=== PATIENT | female | born 1940 | race Caucasian/White ===

== ENCOUNTER 2022-01-19 19:16 | Emergency (ER) | payer MEDICARE, MEDICAID, SELFPAY ==
[2022-01-19 19:25] VITALS: BP 175/111; PULSE 91; RESP 18; O2SAT 92; BMI 28.3
--- NOTE | 2022-01-19 19:48 | XRR_ITS ---
PROCEDURE INFORMATION: Exam: XR Abdomen Exam date and time: 01/19/2022 8:00 PM Age: 81 years old Clinical indication: Abdominal pain TECHNIQUE: Imaging protocol: Radiologic exam of the abdomen. Views: Frontal supine view of the abdomen. 1 View. COMPARISON: No relevant prior studies available. FINDINGS: Gastrointestinal tract: Constipation with large amount of stool in the rectal vault perhaps reflecting fecal impaction, negative for bowel dilation to indicate obstruction. Vasculature: Scattered atherosclerotic calcifications with a possible calcified aortic aneurysm, CT abdomen and pelvis could further evaluate this. Bones/joints: Unremarkable. XR/XR abdomen 1V* [id number] IMPRESSION: 1. Constipation with large amount of stool in the rectal vault perhaps reflecting fecal impaction, negative for bowel dilation to indicate obstruction. 2. Scattered atherosclerotic calcifications with a possible calcified aortic aneurysm, CT abdomen and pelvis could further evaluate this.
--- NOTE | 2022-01-19 19:50 | W.ED.ABDPA2 ---
HPI - Abdominal Pain General: Chief Complaint: Abdominal Pain Stated Complaint: ABD PAIN Time Seen by Provider: 01/19/22 19:37 Source: EMS and RN notes reviewed Limitations: other (Severe dementia unable to give any reliable history) History of Present Illness: See nursing system. Patient has no complaints. Patient reportedly does not have a bowel movement 24 hours and complained of abdominal pain earlier. Patient does not know the year or location. She appears pleasant. Paperwork from retirement was reviewed but no specific complaints or recent laboratory values were in the record. Associated Symptoms: Reports constipation and other (Abdominal pain by history but no complaints of abdominal pain now.); Denies chills, fever(s), nausea and vomiting Review of Systems Const: Denies: fever(s) or chills ENMT: Denies: throat pain Card: Denies: chest pain Resp: Denies: dyspnea GI: Reports: constipation and other (Abdominal pain by history but no complaints of abdominal pain now.); Denies: nausea or vomiting : Denies: flank pain Musc: Denies: neck pain or back pain Skin/Breast: Denies: rash or pruritus Neuro: Denies: headache(s) or numbness in extremities Psych: Reports: other (Patient unable to give much history due to her severe dementia.); Denies: anxiety [facility] ED PFSH: Medical History HTN (hypertension) Hyperlipidemia Hypokalemia Hypothyroid Social History Smoking and tobacco status: never smoked History of recent travel: No Supplemental [facility] Information: Patient has surgical scar to the lower abdomen. Patient unable to give any history of what Surgery she had. Physical Exam Const: COMMON NORMALS: no acute distress and well nourished GENERAL APPEARANCE: cooperative OTHER: Patient with severe dementia. HENMT: COMMON NORMALS: normocephalic and atraumatic HEAD & SCALP: normocephalic and atraumatic FACE & SINUS: normal facial exam OTHER: Mucous membranes are moist. Eye: COMMON NORMALS: EOMs intact bilaterally Neck/C-Spine: COMMON NORMALS: full ROM, no lymphadenopathy, supple and no meningeal signs GENERAL: Yes normal visual inspection Lymph: LYMPHATIC: no lymphadenopathy noted Chest: COMMONS NORMALS: normal inspection of the chest and normal palpation of entire chest wall CHEST: No Ecchymosis present and No rash Resp: COMMON NORMALS: normal respiratory effort, No retractions and clear to auscultation bilaterally EFFORT & INSPECTION: No respiratory distress AUSCULTATION: clear to auscultation bilaterally Cardio: COMMON NORMALS: regular rate, regular rhythm and Peripheral pulses 2+ throughout JUGULAR VENOUS DISTENTION: no JVD RATE: regular rate RHYTHM: regular rhythm PERIPHERAL PULSES: Peripheral pulses 2+ throughout GI: COMMON NORMALS: Normal to inspection, nondistended, normoactive bowel sounds present OTHER: Abdomen soft, nontender except mild right lower quadrant abdominal pain. With deep palpation : OTHER: Rectal exam: Tendon with a nurse. Patient has nonthrombosed external hemorrhoids. Digital exam showed soft brown stool within the rectum. No firm stool. No impaction to removed. Patient had no tenderness. No masses palpated Extremity: COMMON NORMALS: normal to inspection, full ROM and capillary refill normal Neuro: COMMON NORMALS: CN's II-XII intact bilaterally, no focal motor deficits and no sensory deficits noted MENINGEAL SIGNS: Yes no meningeal signs OTHER: No focal neurological deficits except the patient is severely demented. She is unable to give any history. Skin: COMMON NORMALS: no rashes or lesions noted and no wounds GENERAL SKIN EXAM: no rashes or lesions noted Course Vital Signs: Vital signs: Vital Signs Pulse Rate 91 01/19/22 19:25 Respiratory Rate 18 01/19/22 19:25 Blood Pressure 175/111 01/19/22 19:25 Pulse Oximetry 92 01/19/22 19:25 Oxygen Delivery Me thod 01/19/22 19:25 MDM - Abdominal Pain Medical Decision Making Presents with a history of abdominal pain and constipation. Mild right lower quad abdominal pain. Patient otherwise asymptomatic. 2202: Discussed with Chuck Avery patient's legal guardian at [phone]. He states he is aware of the large aortic aneurysm. He states this aneurysm has been present for over a year. He does not want any intervention for this aneurysm. The constipation can be treated with oral medication and possibly an enema at the retirement. Lab Data 01/19/22 19:32 01/19/22 19:32 Labs/Radiology: Radiology Impressions Abdomen X-Ray 01/19/22 19:48 IMPRESSION: 1. Constipation with large amount of stool in the rectal vault perhaps reflecting fecal impaction, negative for bowel dilation to indicate obstruction. 2. Scattered atherosclerotic calcifications with a possible calcified aortic aneurysm, CT abdomen and pelvis could further evaluate this. Abdomen/Pelvis CT 01/19/22 20:58 IMPRESSION: 1. Large 7 cm AAA as described. Based on its size, this should be worked up urgently. No acute rupture is seen today, however. 2. No small bowel obstruction, abscess or free air. 3. Dozens of chronic findings above. 4. Situs inversus. 5. See above for full details. In this patient, bilateral adrenal nodules can be followed up in about 6 months. Other findings as well. 6. Descending thoracic aortic aneurysm as well. COMMENTS: Consistent with the [employer]'s Incidental Findings Committee white paper (J Am Gerardo Radiol 2018): Any incidental renal lesion less than 1 cm or classified as too small to characterize, or any incidental cystic renal lesion characterized as simple-appearing, is likely benign. No follow-up imaging is recommended for these lesions per consensus recommendations based on imaging criteria. THIS REPORT CONTAINS FINDINGS THAT MAY BE CRITICAL TO PATIENT CARE. The findings were verbally communicated via telephone conference at 9:50 PM GRADUATE ADVISOR on 01/19/[address] Hair The findings were acknowledged and understood. Laboratory Results WBC 10.3 10^3/uL (4.0-10.0) H 01/19/22 19:32 RBC 5.02 10^6/uL (4.1-5.3) 01/19/22 19:32 Hgb 15.2 g/dL (11.5-15.3) 01/19/22 19:32 Hct 46.4 % (37.0-47.0) 01/19/22 19:32 MCV 92.4 fl (81-99) 01/19/22 19:32 MCH 30.3 pg (28.0-34.0) 01/19/22 19: MCHC 32.8 g/dL (30.0-36.0) 01/19/22 19:32 RDW 14.2 % (12.1-15.1) 01/19/22 19:32 Plt Count 179 10^3/cmm (130-400) 01/19/22 19:32 MPV 11.3 fL (7.4-10.4) H 01/19/22 19:32 Neut % (Auto) 82.9 % 01/19/22 19:32 Lymph % (Auto) 10.0 % 01/19/22 19:32 [place] % (Auto) 6.1 % 01/19/22 19:32 Eos % (Auto) 0.4 % 01/19/22 19:32 Baso % (Auto) 0.2 % 01/19/22 19:32 Neut # (Auto) 8.57 10^3/uL (1.8-7.7) H 01/19/22 19:32 Lymph # (Auto) 1.0 10^3/uL (0.8-4.8) 01/19/22 19:32 [place] # (Auto) 0.6 10^3/uL (0.2-0.9) 01/19/22 19:32 Eos # (Auto) 0.0 10^3/uL (0.0-0.8) 01/19/22 19:32 Baso # (Auto) 0.0 10^3/uL (0.0-0.1) 01/19/22 19:32 Nucleated RBC % (auto) 0 % 01/19/22: Nucleated RBCs # 0.0 /100WBC 01/19/22 19:32 Sodium 140 mmol/L (136-145) 01/19/22 19:32 Potassium 3.5 mmol/L (3.5-5.1) 01/19/22 19:32 Chloride 102 mmol/L (98-107) 01/19/22 19:32 Carbon Dioxide 27 mmol/L (22-29) 01/19/22 19:32 Anion Gap 14.5 (5-19) 01/19/22 19:32 BUN 22 mg/dL (8-23) 01/19/22 19:32 Creatinine 0.7 mg/dL (0.5-0.9) 01/19/22 19:32 GFR Calculation Not Reportable 01/19/22 19:32 Glucose 135 mg/dL (65-115) H 01/19/22 19:32 Calculated Osmolality 295 mOsm/kg (285-295) 01/19/22 19:32 Calcium 11.6 mg/dL (8.5-10.5) H 01/19/22 19:32 Total Bilirubin 0.9 mg/dL (0.15-1.2) 01/19/22 19:32 AST 17 U/L (0-32) 01/19/22 19:32 ALT 13 U/L (0-33) 01/19/22 19:32 Alkaline Phosphatase 63 U/L (35-105) 01/19/22 19:32 Total Protein 7.1 g/dL (6.6-8.7) 01/19/22 19:32 Albumin 3.4 g/dL (3.5-5.2) L 01/19/22 19:32 Globulin 3.7 g/dL (1.3-4.6) 01/19/22 19:32 Lipase 38 U/L (13-60) 01/19/22 19:32 Urine Color Yellow (Yellow) 01/19/22 20:08 Urine Appearance Sl hazy (CLEAR) A 01/19/22 20:08 Urine pH 6 (5-7) 01/19/22 20:08 Ur Specific [place] 1.020 (1.005-1.030) 01/19/22 20:08 Urine Protein Neg (Negative) 01/19/22 20:08 Urine Glucose (UA) Norm (Normal) 01/19/22 20:08 Urine Ketones Negative (Negative) 01/19/22 20:08 Urine Blood Neg (Negative) 01/19/22 20:08 Urine Nitrate Negative (Negative) 01/19/22 20:08 Urine Bilirubin Neg (Negative) 01/19/22 20:08 Urine Urobilinogen Neg mg/dL (Negative) 01/19/22 20:08 Ur Leukocyte Esterase Negative (Negative) 01/19/22 20:08 Urine RBC 0-4 /hpf (0-2) H 01/19/22 20:08 Urine WBC 5-10 /hpf (0-5) H 01/19/22 20:08 Ur Squamous Epith Cells None /hpf (0-5) 01/19/22 20:08 Amorphous Sediment Not Reportable 01/19/22 20:08 Urine Bacteria 4+ /hpf (NONE) H 01/19/22 20:08 Imaging Data KUB: Radiologist's impression: Ordering Provider/Ordering MD: Biju Hair MD Date of Service: 01/19/22 Procedure(s): XR abdomen 1V* [id number] Accession Number(s): [id number] Report Number: [id number] PROCEDURE INFORMATION: Exam: XR Abdomen Exam date and time: 01/19/2022 8:00 PM Age: 81 years old Clinical indication: Abdominal pain TECHNIQUE: Imaging protocol: Radiologic exam of the abdomen. Views: Frontal supine view of the abdomen. 1 View. COMPARISON: No relevant prior studies available. FINDINGS: Gastrointestinal tract: Constipation with large amount of stool in the rectal vault perhaps reflecting fecal impaction, negative for bowel dilation to indicate obstruction. Vasculature: Scattered atherosclerotic calcifications with a possible calcified aortic aneurysm, CT abdomen and pelvis could further evaluate this. Bones/joints: Unremarkable. XR/XR abdomen 1V* [id number] IMPRESSION: 1. Constipation with large amount of stool in the rectal vault perhaps reflecting fecal impaction, negative for bowel dilation to indicate obstruction. 2. Scattered atherosclerotic calcifications with a possible calcified aortic aneurysm, CT abdomen and pelvis could further evaluate this. ? Dictated By: Daryl Garrett MD Signed By: Daryl Garrett MD Signed Date/Time: 01/19/222033 DD/ 99 Discharge Plan Discharge Patient Disposition: Home Clinical Impression: Constipation, chronic, Fecal impaction in rectum, Acute UTI (urinary tract infection) Abdominal pain Qualifiers: Abdominal location: right lower quadrant Qualified Code(s): R10.31 - Right lower quadrant pain AAA (abdominal aortic aneurysm) without rupture Qualifiers: Abdominal aorta location: unspecified Qualified Code(s): I71.40 - Abdominal aortic aneurysm, without rupture, unspecified Condition: Stable Prescriptions: New cephalexin 500 mg capsule 500 mg PO QID 7 Days Qty: 28 0RF Rx Instructions: for infection magnesium citrate Solution 300 ml PO DAILY PRN (Reason: constipation) Qty: 296 2RF Senokot Extra Strength 17.2 mg tablet 17.2 mg PO BID PRN (Reason: constipation) Qty: 10 1RF No Action ammonium lactate 12 % cream 1 applic topical DAILY Qty: 385 6RF Rx Instructions: Neck down daily diltiazem HCl 300 mg capsule,extended release 24hr 300 mg PO DAILY hydrochlorothiazide 25 mg tablet 25 mg PO DAILY levothyroxine 88 mcg capsule 88 mcg PO DAILY atorvastatin 10 mg tablet 10 mg PO DAILY docusate sodium 100 mg capsule 100 mg PO BID lisinopril 40 mg tablet 40 mg PO DAILY potassium chloride [Klor-Con M20] 20 mEq tablet,ER particles/crystals 20 meq PO DAILY Discharge Orders: Discharge ED (Routine); Ordered 01/19/22 Ordered By: Biju Hair Discharge Diet: Advance as tolerated Discharge Activity: Increase activity as tolerated Patient Instructions: Constipation (ED), Urinary Tract Infection in Women (ED), Nonruptured Abdominal Aortic Aneurysm (DC), Abdominal Pain (ED) Activity Restrictions/Additional Instructions: Drink plenty fluids. May take enema of choice to clear constipation. May take Senokot-S and/or magnesium citrate to help with constipation. Patient has a 7 cm diameter abdominal aortic aneurysm that guardian is aware of. Guardian does not want any intervention with the aneurysm. Rectal exam showed no hard stool in the rectum. Coding Level of Care Code ED Farm General Manager for Chg Fwd Exam Comprehensive Medical Decision Making High Complexity
[2022-01-19 19:56] LABS: Basophils % 0.2 %; Eosinophils % 0.4 %; Hematocrit 46.4 % (37.0-47.0); Hemoglobin 15.2 g/dL (11.5-15.3); Mean Corpuscular HGB Conc 32.8 g/dL (30.0-36.0); Mean Corpuscular Hemoglobin 30.3 pg (28.0-34.0); Mean Corpuscular Volume 92.4 fl (81-99); Mean Platelet Volume 11.3 fL (7.4-10.4); Monocytes # 0.6 10^3/uL (0.2-0.9); Monocytes % 6.1 %; Neutrophils # 8.57 10^3/uL (1.8-7.7); Neutrophils % 82.9 %; Nucleated Red Blood Cells % 0 %; Platelet Count 179 10^3/cmm (130-400); Red Blood Count 5.02 10^6/uL (4.1-5.3); Red Cell Distribution Width 14.2 % (12.1-15.1); White Blood Count 10.3 10^3/uL (4.0-10.0)
[2022-01-19 20:13] LABS: Alanine Aminotransferase 13 U/L (0-33); Albumin Level 3.4 g/dL (3.5-5.2); Alkaline Phosphatase 63 U/L (35-105); Anion Gap 14.5 (5-19); Aspartate Amino Transferase 17 U/L (0-32); Blood Urea Nitrogen 22 mg/dL (8-23); Calcium 11.6 mg/dL (8.5-10.5); Carbon Dioxide 27 mmol/L (22-29); Chloride 102 mmol/L (98-107); Creatinine Clr Calc Pharmacy 52.6488; Globulin 3.7 g/dL (1.3-4.6); Glucose 135 mg/dL (65-115); Lipase 38 U/L (13-60); Osmolality Calculated 295 mOsm/kg (285-295); Potassium 3.5 mmol/L (3.5-5.1); Sodium 140 mmol/L (136-145); Total Bilirubin 0.9 mg/dL (0.15-1.2); Total Protein 7.1 g/dL (6.6-8.7)
--- NOTE | 2022-01-19 20:58 | CTR_ITS ---
PROCEDURE INFORMATION: Exam: CT Abdomen And Pelvis With Contrast Exam date and time: 01/19/2022 9:33 PM Age: 81 years old Clinical indication: Abdominal pain; Additional info: Pain rlq abd pain TECHNIQUE: Imaging protocol: Computed tomography of the abdomen and pelvis with contrast. Radiation optimization: All CT scans at this facility use at least one of these dose optimization techniques: automated exposure control; mA and/or kV adjustment per patient size (includes targeted exams where dose is matched to clinical indication); or iterative reconstruction. Contrast material: OMNIPAQUE 350; Contrast volume: 100 ml; Contrast route: INTRAVENOUS (IV); COMPARISON: CR (ABDOMEN, ) 01/19/2022 8:00 PM RADIATION DOSE METRICS: Total DLP (mGy-cm): 655.9 FINDINGS: Lungs: [id number] lung base atelectasis or scarring. Heart: The heart is quite large with apex on the right. Liver: The left-sided liver is rather large. A few minute hepatic cystic foci are present, and these measure up to about 1.4 cm. These are too small to characterize but could be followed up perhaps in 1 year. Gallbladder and bile ducts: No calcified gallstones or biliary dilation identified. Pancreas: Unremarkable with no suspicious mass. No ductal dilation. Spleen: The right-sided spleen is not enlarged. Adrenal glands: A left adrenal nodule measures 1.7 cm with soft tissue density. The right adrenal also contains a small nodule measuring about 1.5 cm. Both adrenals are nodular and thickened throughout. Kidneys and ureters: Multiple bilateral renal cysts are likely. These are mainly in the peripelvic regions. Lobular and scarred kidneys. Stomach and bowel: No small bowel obstruction, abscess or free air. Mild fecal impaction is likely. Appendix: Normal appendix on the left side. Intraperitoneal space: See Stomach and bowel finding. Vasculature: Severe diffuse atherosclerotic disease. The lower thoracic aorta measures up to 38 x 34 mm. A very large AAA is present, which measures in the axial plane up to about 69 x 69 mm. This is infrarenal. The right renal artery is ectatic proximally to 10 mm at its origin. Lymph nodes: No suspicious mesenteric or retroperitoneal lymphadenopathy. Urinary bladder: Unremarkable as visualized. Reproductive: A few uterine fibroids measure up to 2.5 cm. Bones/joints: There is diffuse sinus inversus to talus present. Diffuse osteopenia. Moderate lower lumbar facet arthropathy. Soft tissues: No acute or suspicious finding noted. Other findings: There is dystrophic calcification in the aneurysm. No acute rupture is seen. CT/CT abdomen pelvis w con* [id number] IMPRESSION: 1. Large 7 cm AAA as described. Based on its size, this should be worked up urgently. No acute rupture is seen today, however. 2. No small bowel obstruction, abscess or free air. 3. Dozens of chronic findings above. 4. Situs inversus. 5. See above for full details. In this patient, bilateral adrenal nodules can be followed up in about 6 months. Other findings as well. 6. Descending thoracic aortic aneurysm as well. COMMENTS: Consistent with the [employer]'s Incidental Findings Committee white paper (J Am Gerardo Radiol 2018): Any incidental renal lesion less than 1 cm or classified as too small to characterize, or any incidental cystic renal lesion characterized as simple-appearing, is likely benign. No follow-up imaging is recommended for these lesions per consensus recommendations based on imaging criteria. THIS REPORT CONTAINS FINDINGS THAT MAY BE CRITICAL TO PATIENT CARE. The findings were verbally communicated via telephone conference at 9:50 PM TERRITORY MANAGER on 01/19/[address] Hair The findings were acknowledged and understood.
[2022-01-19] MEDS: iohexol 350 mg/mL 500 mL Btl (per mL) IV (21:36)
[2022-01-19 22:17] LABS: Bilirubin Urine Neg (Negative); Blood Urine Neg (Negative); Glucose Urine UA Norm (Normal); Ketones Urine Negative (Negative); Leukocyte Esterase Urine Negative (Negative); Nitrate Urine Negative (Negative); Protein Urine Neg (Negative); Urine Appearance SL Hazy (CLEAR); Urine Color Yellow (Yellow); Urobilinogen Urine Neg (Negative); pH Urine 6 (5-7)
[2022-01-19 22:18] LABS: Add Urine Culture? Yes; Bacteria Urine 4+ /hpf; RBC Urine 0-4 /hpf (0-2)
[2022-01-19] MEDS: cefTRIAXone 1,000 MG in sodium chloride 0.9% (plus) 50 ML 100 MG IV (23:49)
--- NOTE | 2022-01-20 07:40 | PC.NURSE ---
pt sitting up on side of bed, aide at bedside within reach. pt waiting for breakfast tray, applesauce, apple juice, and pudding brought to room. assisted pt in opening juice.
[2022-01-20 08:09] VITALS: BP 158/98; RESP 16
[2022-01-20 08:27] VITALS: PULSE 80; O2SAT 95
== END 2022-01-20 10:33 | disposition home or self-care (01) ==
PROVIDERS: Emergency Provider Family Medicine
DX: K59.09 Other constipation (principal); N39.0 Urinary tract infection, site not specified; I71.40 Abdominal aortic aneurysm, without rupture, unspecified; I10 Essential (primary) hypertension; E78.5 Hyperlipidemia, unspecified
CPT/HCPCS: 51701; 74018; 74177; 80053; 81001; 83690; 85025; 87086; 96365; 99285; J0696; Q9967